=== PATIENT | male | born 1990 | race Caucasian/White ===

== ENCOUNTER 2023-06-01 21:30 | Emergency (ER) | payer BC, SELFPAY ==
[2023-06-01 21:44] VITALS: BP 134/81; PULSE 88; RESP 16; TEMP 36.6; O2SAT 100; BMI 27.1
[2023-06-02] MEDS: TET,DIPH,PERTUSS(ACELL),VAC/PF 0.5 ML SYRINGE IM (00:29)
--- NOTE | 2023-06-02 00:35 | PC.NURSE ---
pt was working in his shop when part of the blade broke off flying back hitting him the forehead, pt has a 1 in lac to the right forehead pt was wearing safety glasses at the time
[2023-06-02] MEDS: LIDOCAINE 1% 20 ML INJ (00:47)
--- NOTE | 2023-06-02 01:15 | ED.WOUNDLAC ---
HPI - Wound/Laceration General Chief Complaint: Wound/Laceration Stated Complaint: small gash on right side of forehead Time Seen by Provider: 06/02/23 01:15 Source: patient Mode of arrival: Ambulatory History of Present Illness HPI narrative: Otherwise healthy 32-year-old gentleman was using a jewel bearing grinder when a piece broke off flew up hit his safety glasses and then caused a 3 cm laceration to his mid forehead. Bleeding has been controlled. There was no loss of consciousness. The wound is approximately 3 cm in length and is full-thickness. He is not complaining of significant pain and no headache. He does not recall when his last tetanus shot was Related Data Allergies Allergy/AdvReac Type Severity Reaction Status Date / Time Penicillins Allergy Verified 06/01/23 21:50 Review of Systems Review of Systems Narrative: Pertinent positive and negative findings as per HPI Patient History Social History Smoking Status: Current every day smoker Smoking Status: Current every day smoker tobacco type: cigarettes Substance Use Type: does not use Exam Initial Vital Signs Initial Vital Signs: Vital Signs Temperature 97.9 F 06/01/23 21:44 Pulse Rate 88 06/01/23 21:44 Respiratory Rate 16 06/01/23 21:44 Blood Pressure 134/81 06/01/23 21:44 Pulse Oximetry 100 06/01/23 21:44 Oxygen Delivery Method Room Air 06/01/23 21:44 General: Alert appropriate in no acute distress HEENT: There is a 3 cm vertical full-thickness laceration right side just off midline his forehead. Respiratory: Able to speak in full sentences, no obvious respiratory distress Skin: No obvious rashes, warm and dry Neurologic: Grossly intact no obvious asymmetries or abnormalities Psych: appropriate insight and affect, cooperative Procedures Laceration Repair Forehead laceration: Time of procedure: :23 Site: face Side (If applicable): right Size (cm): 3 Description: linear and contaminated Depth: simple, single layer Local Anesthetic: lidocaine 1% Amount of anesthesia used (mL): 3 Pre-repair: wound explored, irrigated extensively and deep structures intact Skin layer closed with: nylon Skin layer suture size: 4-0 Number of sutures: 4 Technique: simple, interrupted (3 superficial for good aesthetic results) and horizontal mattress (1 deep placed For hemostasis) Course Orders Ordered: Discontinued Medications Bacitracin (Bacitracin Oint 0.9 Gm Pckt) 1 applic TOP NOW ONE Stop: 06/02/23 02:08 Last Admin: 06/02/23 02:17 Dose: 1 applic Documented By: JOYCELYN Diphtheria/Tetanus/Acell Pertussis (Tet,Diph,Pertuss(Acell),Vac/Pf 0.5 Ml Syringe) 0.5 ml IM .ONCE ONE Stop: 06/01/23 23:02 Last Admin: 06/02/23 00:29 Dose: 0.5 ml Documented By: JOYCELYN Lidocaine HCl (Lidocaine 1% 20 Ml) 20 ml INJ INTRA-OP ONE Stop: 06/02/23 00:45 Last Admin: 06/02/23 00:47 Dose: 20 ml Documented By: JOYCELYN Vital Signs Vital signs: Vital Signs - 8 hr 06/01/23 21:44 Temperature 97.9 F Pulse Rate 88 Respiratory Rate 16 Blood Pressure 134/81 Pulse Oximetry 100 Oxygen Delivery Method Room Air MDM - Wound/Laceration MDM Narrative Medical decision making narrative: CC: Forehead laceration Data collected from: patient, Differential considered: Simple laceration, complex laceration, underlying bony injury Exam documented above, pertinent findings include: 3 cm laceration through the entire forehead not including bone no nerve or artery involvement Treatments: 1 deeper horizontal mattress suture placed for hemostasis in 3 superficial simple interrupted sutures placed for cosmetic results Tetanus shot is given Discussion: Simple laceration, repaired without difficulty there was a bit of metallic debris at the base of the wound that was removed and the wound was completely explored. Patient tolerated everything well. Band-Aid with bacitracin was applied. Recommended sutures out in 7 days and clearly reviewed signs and symptoms of both superficial as well as deeper infection. Patient is safe for discharge Discharge Plan Departure Patient Disposition: Home Clinical Impression: Laceration Instructions: DI for Laceration Repair Activity Restrictions/Additional Instructions: Thank you for coming in today It does seem that your safety glasses made a significant difference today. Your tetanus status was updated today, if your arm is stiff and sore ibuprofen can be helpful You will need the stitches taken out of your forehead on or about June 09. You can return to the ER, urgent care or your primary care doctor to have this done. Any signs of infection including swelling across your forehead as well as local signs of infection such as drainage or redness are not okay and need to be re-evaluated Stand Alone Forms: Patient Portal/API
[2023-06-02] MEDS: BACITRACIN OINT 0.9 GM PCKT 1 APPLIC TOP (02:17)
[2023-06-02 02:31] VITALS: BP 124/77; PULSE 68; RESP 17; O2SAT 98
== END 2023-06-02 02:33 | disposition home or self-care (01) ==
PROVIDERS: Emergency Provider Emergency Medicine
DX: S01.81XA Laceration without foreign body of other part of head, initial encounter (principal); W22.8XXA Striking against or struck by other objects, initial encounter; Z23 Encounter for immunization
CPT/HCPCS: 12013; 90471; 99283; 90715